=== PATIENT | female | born 1945 | race Caucasian/White ===

== ENCOUNTER 2017-01-15 21:21 | Emergency (ER) | payer MEDICARE, MEDICAID ==
[~2017-01-15] VITALS: Ht 154.9 cm; Wt 90.9 kg
[~2017-01-15 21:21] MED LIST: CYCL5TAB PO; GABA100C PO; METH500T PO
[2017-01-15 21:28] VITALS: BP 171/93; PULSE 85; RESP 18; O2SAT 99
[2017-01-15 22:50] LABS: BASOPHILS % (AUTO) 0.2 % (0-3); EOSINOPHILS % (AUTO) 0 % (0-5); MONOCYTES % (AUTO) 6.6 % (4-12); Mean Corpuscular Hemoglobin 29.2 pg (27.0-35.0); Mean Corpuscular Volume 89.2 fL (81-100); NEUTROPHILS % (AUTO) 78.3 % (40-74); Platelet Count 218 bil/L (150-400)
--- NOTE | 2017-01-15 23:12 | ED.REPORT ---
HPI-Headache Date of Service Jan 15, 2017 ED Provider: Gloria Vyas MD Pt is a 71 y.o. female with a hx of chronic back pain and anxiety who presents to the ED c/o a headache onset yesterday. Pt states that when her headache began last night she went to take a Tylenol for her pain, she reports accidentally taking her daughters opiates instead. After taking the medication she experienced nausea and vomiting. She also claims that her headache has gotten progressively worse. She claims the situation is making her anxiety worse as well. She denies any head trauma. Nursing Notes Stated Complaint: NAUSEA, VOMITING Chief Complaint: Female Abdominal Pain Nursing Notes Reviewed: Yes Allergies: Coded Allergies: codeine (Verified Allergy, Intermediate, Rash,Itching,, 01/15/17) Scheduled Gabapentin (Neurontin) 100 Mg Capsule 100 MG PO DAILY Take 1 pill by mouth daily for 4 days, then take 1 pill by mouth twice a day , for 4 days, then take 1 pill by mouth 3 times a day for the remainder of the medications Methocarbamol (Robaxin) 500 Mg Tablet 1,000 MG PO TID Scheduled PRN Cyclobenzaprine (Cyclobenzaprine) 5 Mg Tablet 5 MG PO TID PRN PRN Spasm Ondansetron ODT (Ondansetron ODT) 4 Mg Tab.rapdis 4 MG PO Q6H PRN PRN For Nausea General Time Seen by MD: 23:07 Chief Complaint Headache Hx Obtained From: Patient Arrived By: Walk-in Sudden in Onset?: Yes Onset Occurred: Yesterday Symptom Duration: Since onset Location: : Generalized Quality: Painful Severity: Current: Severe Severity: Maximum: Severe Past Medical History Past Medical History Arthritis Chronic back pain Anxiety Past Surgical History Denies Family History Noncontributory Smoking History Unknown if Ever Smoker Social History Other Social History: Good social support, , Local resident Ambulatory Status Independent Review of Systems GI: Reports: Nausea, Vomiting Neurologic: Reports: Headache Psychiatric: Reports: Anxiety Complete sys rev & neg: except as marked. Physical Exam Initial Vital Signs Vital Signs (First) Date Time Temp Pulse Resp B/P Pulse Ox O2 Delivery O2 Flow Rate FiO2 01/15/17 21:28 37.9 85 18 171/93 99 Room Air Initial VS: Reviewed Respiratory: Breath sounds normal, Clear to auscultation, No respiratory distress Cardiovascular: Regular rate & rhythm, Heart sounds normal, Intact distal pulses Extremities: Vascular intact, Neuro intact Skin: Warm, Dry, No cyanosis Psychiatric: Mood/affect normal, Behavior normal, Normal thought content General/Constitutional: Awake, Alert, Well appearing, Well developed, Well hydrated, Well nourished, Not toxic appearing Behavior: Positive: Anxious Head / Eyes: Atraumatic, Normocephalic, PERRL (4mm), EOMI Neck: Atraumatic Neurologic: Oriented X3, Speech NL, No motor deficits, CN II - XII intact Focal Weakness: Negative: Pronator drift L, Pronator drift R Cerebellar Dysfunction: Negative: Finger-nose abnl 5/5 strength in bilateral upper and lower extremities. Interpretation & Diagnostics Lab Results Interpretation Result Diagram: 01/15/17222901/15/172229 Test 01/15/17 22:30 White Blood Count 6.6th/mm3 (3.8-10.1) Red Blood Count 4.93mil/mm3 (3.90-5.20) Hemoglobin 14.4g/dL (12.0-15.6) Hematocrit 44.0% (35.0-46.0) Mean Corpuscular Volume 89.2fL (81-100) Mean Corpuscular Hemoglobin 29.2pg (27.0-35.0) Mean Corpuscular Hemoglobin Concent 32.7% (32.0-37.0) Red Cell Distribution Width 12.9% (12.3-15.4) Platelet Count 218bil/L (150-400) Neutrophils (%) (Auto) 78.3% (40-74) Lymphocytes (%) (Auto) 14.6% (14-46) Monocytes (%) (Auto) 6.6% (4-12) Eosinophils (%) (Auto) 0% (0-5) Basophils (%) (Auto) 0.2% (0-3) Sodium Level 140mEq/L (134-144) Potassium Level 3.4mEq/L (3.5-5.2) Chloride Level 101mEq/L (97-108) Carbon Dioxide Level 21mmol/L (18-29) Blood Urea Nitrogen 7mg/dL (8-27) Creatinine 0.57mg/dL (0.57-1.00) Estimat Glomerular Filtration Rate 151mL/min (>59) Glucose Level 133mg/dL (60-99) Calcium Level 9.5mg/dL (8.5-10.1) Magnesium Level 2.0mg/dL (1.6-2.6) Total Bilirubin 0.4mg/dL (0.0-1.2) Aspartate Amino Transf (AST/SGOT) 18U/L (0-50) Alanine Aminotransferase (ALT/SGPT) 16U/L (0-32) Alkaline Phosphatase 86U/L (25-165) Total Protein 7.2g/dL (6.4-8.4) Albumin 4.0g/dL (3.4-5.0) Re-Eval/Medical Decision Med Decision/Clinical Course 71-year-old female with past medical history of psychiatric disorders including anxiety here with headache. Headache was gradual onset, moderate to previous headaches. Differential diagnosis includes but is not limited to migraine headache versus tension headache versus intracranial bleed versus meningitis. At this time, I do not feel patient has intracranial bleed or meningitis. Her neurologic exam is completely normal, her history is not consistent with either meningitis or intracranial bleed, she has no fevers, and is extremely well appearing. She does appear very anxious. She was given a cocktail of nonnarcotic medications for her headache, along with Zofran, and feels much better. She is amenable to discharge with prescription for Zofran. She has follow-up with her primary care physician and has been given very strict return precautions. Source of Hx: Old records Re-Evaluation/Progress : Time of Eval: 23:57 )( Patient Status: Condition improved Re-Evaluation/Progress Note: Pt rechekced. Pt feels improved and would like to leave. Discussed plan for discharge, pt understands and agrees with plan. Counseled Regarding: Diagnosis, Need for follow-up, When/why to return to ED Discharge & Departure Impression: Primary Impression: Headache Disposition: Home Discharge Condition All VS Reviewed: Yes Condition: Improved Additional Instructions: Thank you for entrusting us with your care today. You were seen here today for a headache and nausea. I will write you a prescription for Zofran to take as directed for nausea and vomiting. You can take Tylenol and Ibuprofen as directed for pain. Follow-up with your primary care physician next week. Seek care for weakness, numbness, incontinence, or any new or worsening symptoms. Referrals: Maury Fatima MD (PCP) Joel Attestation Portions of this note were transcribed by Justine Chavez. I, Dr. Vyas personally performed the history, physical exam and medical decision-making; I reviewed and confirmed the accuracy of the information in the transcribed note. Signed by : Joel Hussein, 01/16/17 and 0003. copies to: Maury Fatima MD, Rebecca A MD Jan 15, 2017 23:12 JUSTINE CHAVEZ Jan 15, 2017 23:19
[2017-01-15] MEDS ORDERED: Acetaminophen IV 1,000 MG in IV Premix 1 EACH IV ONE (23:15)
[2017-01-15] MEDS ORDERED: ProchlorPERazine 5 mg/mL 2 mL Inj IVPUSH ONE (23:15)
[2017-01-15] MEDS ORDERED: Ondansetron 2 mg/mL 2 mL Inj IVPUSH ONE (23:15)
[2017-01-15] MEDS ORDERED: ONDA4TAB12 PO (23:59)
== END 2017-01-16 00:02 | disposition home or self-care (01) ==
LOC: SED 21:28
DX: R51 Headache (principal); R11.2 Nausea with vomiting, unspecified; Z88.5 Allergy status to narcotic agent
CPT/HCPCS: 80053; 83735; 85025; 93005; 96374; 96375; 99285; J0780; J1200; J1885; J2405